=== PATIENT | male | born 1960 | race Two or more races ===

== ENCOUNTER 2024-10-11 20:01 | Emergency (ER) | payer MEDICAID, SELFPAY ==
[2024-10-11 20:03] VITALS: BMI 27.8
[2024-10-11 20:21] VITALS: BP 129/74; PULSE 85; RESP 22; TEMP 36.8; O2SAT 95
--- NOTE | 2024-10-11 20:44 | XR_ITS ---
Examination: CT brain head without contrast. 2-D sagittal coronal reconstructions Date and time of exam:October 11, 2024 2139 hours INDICATIONS: Patient fell today with injury to the head, head pain CTDI: vol (mGy):47 DLP: (mGycm):871 Technique: Multiple CT axial sections of the brain have been obtained, 5 mm slice thickness. Contrast has not been administered. 2-D sagittal, coronal reconstructions have been obtained Low dose protocols were performed. One or more of the following dose reduction techniques were used; automated exposure control, adjustment of the mA and/or KV according to patient size, use of iterative reconstruction technique. Findings: No significant ventricular enlargement. Soft tissue forehead scalp swelling Intra-axial or extra-axial hemorrhage density is not seen. No mass effect or midline shift Basal cisterns are not remarkable. Fourth ventricle is midline. Cranial vault intact. Impression: Negative for acute hemorrhage, mass effect or midline shift
--- NOTE | 2024-10-11 20:44 | XR_ITS ---
Examination: CT cervical spine without contrast 2-D sagittal reconstructions 2-D coronal reconstructions 3-D reconstructions. Exam date and time:October 11, 2024 2139 hours INDICATIONS: Patient fell today with injury to the neck, neck pain CTDI:vol (mGy) 7.9 DLP: (mGycm) 170 Technique: Multiple 2 mm axial sections of the cervical spine have been obtained. The coronal and sagittal reconstructions have been obtained. 3-D reconstructions have been obtained. Low dose protocols were performed. One or more of the following dose reduction techniques were used; automated exposure control, adjustment of the mA and/or KV according to patient size, use of iterative reconstruction technique. Findings: Axial sections demonstrate intact base of the skull. C1 exhibit satisfactory relationship to the odontoid. No acute cervical vertebral body fracture seen. Alignment posterior spinous processes satisfactory. Impression: No acute cervical fracture.
--- NOTE | 2024-10-11 20:46 | EDNOTE_ITS ---
ED Fall Injury RME/HPI General Chief Complaint: Fall Stated Complaint: FALL, LACERATION TO FOREHEAD, DIZZINESS Time Seen by Provider: 10/11/24 20:09 Arrival date/time: 10/11/24 20:01 RME / HPI RME / HPI Narrative: 64-year-old male patient came in for evaluation regarding forehead laceration. Patient was in ladder, accidentally fell, resulting into 5 cm gaping laceration forehead. Patient complained of neck pain also. Also complained of dizziness. No LOC noted patient is ambulatory denies any other injury patient is not taking any medication. Related Data Home Medications ?Medication ?Instructions ?Recorded ?Confirmed Cyclobenzaprine * (FLEXERIL *) 10 mg PO Q8HR PRN PAIN #0 tabs 02/11/16 04/07/19 Hydrocodone/Acetaminophen * (NORCO 1 tab PO Q6H PRN PA IN #0 tabs 02/11/16 04/07/19 7.5/325 *) docusate sodium 100 mg capsule 100 mg PO BID #0 caps 0 02/11/16 04/07/19 (Colace) omeprazole 40 mg capsule,delayed 40 mg PO QDAY ##0 04/07/19 release spironolactone 100 mg tablet 1 tab PO QDAY ##0 6 04/07/19 (Aldactone) gabapentin 300 mg capsule 300 mg PO TID 06/28/1704/07 glipizide 5 mg tablet 5 mg PO BID 04/07/19 9 lovastatin 20 mg tablet 20 mg PO QDAY 04/07/1904/07 metformin 1,000 mg tablet 1,000 mg PO QDAY 04/07/19 propranolol 20 mg tablet 20 mg PO BID 04/07/19 Previous Rx's ?Medication ?Instructions ?Recorded hydrocodone 10 mg-acetaminophen 1 tab PO Q6H PRN pain #30 tabs 04/10/19 325 mg tablet ([place]) hydrocodone 5 mg-acetaminophen 325 1 tab PO BID PRN pa in #10 tabs 02/06/20 mg tablet ([place]) ibuprofen 800 mg tablet 800 mg PO TID PRN pain #30 t abs 02/06/20 hydrocodone 5 mg-acetaminophen 325 1 tab PO Q8H PRN pa in #4 tabs 02/17/21 mg tablet ([place]) hydrocodone 5 mg-acetaminophen 325 1 tab PO Q8H PRN pa in #5 tabs 02/17/21 mg tablet ([place]) ibuprofen 800 mg tablet 800 mg PO Q8H PRN pain #30 t abs 10/11/24 Allergies Allergy/AdvReac Type Severity Reaction Status Date / Time No Known Allergies Allergy Verified 10/11/24 20:03 Review of Systems Review of Systems Narrative Review of Systems: Review of system reviewed and within normal limits except mentioned in HPI ED Exam Narrative Physical exam: VITAL SIGNS: Reviewed. GENERAL APPEARANCE: Alert and interactive, follows commands, no acute distress, HEAD AND FACE: +5 cm gaping laceration forehead ENT: PERRL, pink conjunctivitis, eyelid no trauma, Mucous membrane moist. NECK: Supple, posterior neck tenderness, no nuchal rigidity. CHEST: No tenderness, no crepitus, no paradoxical movement, no retractions. LUNGS: Clear, well ventilated, symmetric, no rales, no wheezing, no ronchi, no stridor, good breath sounds bilaterally. HEART: Regular rate, regular rhythm, no murmur, no gallops. ABDOMEN: Soft, positive bowel sounds, nondistended, no guarding, nontender, no rebound, no masses, RECTAL: Deferred. GENITAL: Deferred. NEUROLOGICAL: Gross motor function intact sensory function intact, Appropriate for age. MUSCULOSKELETAL: low back nontender, full range of motion. EXTREMITIES: Nontender, full range of motion. SKIN: Color pink, dry, no rash, no lacerations, no abrasions, no contusions. LYMPHATICS: Deferred. Course Quality Measures none Orders Category Date Time Status CT cervical spine wo con Stat Exams 10/11/24 20:[address] head/brain wo con Stat Exams 10/11/24 20:44 Completed Acetaminophen Tab [Tylenol ES Tab] Med 10/11/24 20:44 Discontinued 1,000 mg PO X1 ONE Lidocaine 1% 20 ml [Xylocaine 1% 20 ML] Med 10/11/24 20:44 Discontinued 10 ml INFL X1 ONE TET,DIP/PERT AC (Adult)-Tdap [Boostrix Adult (Tdap) Med 10/11/24 20:44 Discontinued Vacc] 0.5 ml IMI .ONCE ONE Vital Signs Vital signs: Vital Signs Temperature 98.3 F 10/11/24 20:21 Pulse Rate 85 10/11/24 20:21 Respiratory Rate 22 H 10/11/24 20:21 Blood Pressure 129/74 10/11/24 20:21 Pulse Oximetry (%) 95 10/11/24 20:21 Oxygen Delivery Method Room Air 10/11/24 20:21 Procedures -ED Laceration Laceration 1: Site: face Size (cm): 5 Description: linear Depth: simple, single layer Local Anesthetic: lidocaine 1% Amount of anesthesia used (mL): 5 Pre-repair: wound explored, irrigated extensively and deep structures intact Skin layer closed with: nylon Suture size (cm): 5-0 Number of sutures: 9 Technique: simple, interrupted Fall [facility] Narrative [facility] Narrative:: 64-year-old male patient came in for evaluation regarding forehead laceration. Patient was in ladder, accidentally fell, resulting into 5 cm gaping laceration forehead. Patient complained of neck pain also. Also complained of dizziness. No LOC noted patient is ambulatory denies any other injury patient is not taking any medication. CT scan of the head came back unremarkable CT of the neck came back unremarkable Patient was given Tylenol and Boostrix Repair and suturing was done by me. See procedure note Patient data External records reviewed:: None Clinical information provided by:: patient and family Social determinants that could affect healthcare access:: none Patient has the following chronic illnesses:: None How is presenting disease/condition affected by chronic disease/condition?: no chronic disease Evaluation data The following diagnostics were reviewed and interpreted by me:: radiology exam(s) Lab and/or radiology exams considered but not ordered:: None Interpretation Summary: See results [facility] Medications / Prescriptions Medications or Prescriptions considered but not ordered:: None Medication administrations:: Medication Administration History Discontinued Medications Acetaminophen (Acetaminophen 500 Mg Tablet) 1,000 mg PO X1 ONE Stop: 10/11/24 20:45 Last Admin: 10/11/24 21:14 Dose: 1,000 mg Documented By: BD Diphtheria/Tetanus/Acell Pertussis (Diphth,Pertuss(Acell),Tet Vac 0.5 Ml Syr- Adult) 0.5 ml IMi .ONCE ONE Stop: 10/11/24 20:45 Last Admin: 10/11/24 21:15 Dose: 0.5 ml Documented By: BD Lidocaine HCl (Lidocaine Hcl 1% 20 Ml Vial) 10 ml INFL X1 ONE Stop: 10/11/24 20:45 Last Admin: 10/11/24 21:15 Dose: 10 ml Documented By: BD Boostrix Tylenol Consultations Consultation(s) initiated? (list below): No Diagnosis Fall Differential Diagnosis: syncope and other (Fall, forehead laceration intracranial bleed) Most likely diagnosis given after review of the tests above:: Forehead laceration, intracranial bleed Admission Indicated Admission indicated?: not indicated Explain why admission is indicated or not indicated:: Stable Admission Request Was there a request for admission?: No Disposition Plan Disposition Plan: Discharge Discharge Attestation Discharge Attestation: The patient and all family members were given an opportunity to ask questions and understood the discharge instructions. Discharge instructions specifically effects, indications for sooner follow up or return to the emergency department, and the expected course of current diagnosis. Patient condition: Stable Discharge Plan Plan Patient Disposition: HOME (Self Care) Discharge Disposition comment: Stable Prescriptions/Referrals Prescriptions/Med Rec: New ibuprofen 800 mg tablet 800 mg PO Q8H PRN (Reason: pain) Qty: 30 0RF No Action gabapentin 300 mg capsule 300 mg PO TID Cyclobenzaprine * (FLEXERIL *) 10 MG tablet 10 mg PO Q8HR PRN (Reason: PAIN) Qty: 0 Hydrocodone/Acetaminophen * ([place] 7.5/325 *) 1 TAB tablet 1 tab PO Q6H PRN (Reason: PAIN) Qty: 0 spironolactone [Aldactone] 100 MG tablet 1 tab PO QDAY Qty: 0 omeprazole 40 MG capsule,delayed release(DR/EC) 40 mg PO QDAY Qty: 0 docusate sodium [Colace] 100 MG capsule 100 mg PO BID Qty: 0 metformin 1,000 mg Tablet 1,000 mg PO QDAY lovastatin 20 mg Tablet 20 mg PO QDAY propranolol 20 mg Tablet 20 mg PO BID glipizide 5 mg Tablet 5 mg PO BID hydrocodone-acetaminophen [[place]] 10-325 mg tablet 1 tab PO Q6H MDD 3 PRN (Reason: pain) Qty: 30 0RF ibuprofen 800 mg tablet 800 mg PO TID PRN (Reason: pain) Qty: 30 0RF hydrocodone-acetaminophen [[place]] 5-325 mg tablet 1 tab PO BID MDD 10mg PRN (Reason: pain) Qty: 10 0RF hydrocodone-acetaminophen [[place]] 5-325 mg tablet 1 tab PO Q8H MDD 3 PRN (Reason: pain) Qty: 4 0RF hydrocodone-acetaminophen [[place]] 5-325 mg tablet 1 tab PO Q8H MDD 3 PRN (Reason: pain) Qty: 5 0RF Referrals: No Primary/Family,Physician [Primary Care Provider] - In 1 week Problem List Clinical Impression: Forehead laceration, Fall Patient/Caregiver Discharge Instructions Discharge Activity: activity as tolerated Education Materials: ED Head Injury (Adult) Additional Instructions: Thank you for the opportunity for serving you today. You are stable for discharged . You are advised to: Follow-up with your PCP in 1 to 2 days Return to ED for worsening of symptoms Increase oral fluids Take medication as prescribed Daily dressing with bacitracin as needed For removal of sutures in 7 to 10 days Print Language: Kyrgyz Stand Alone Forms: Brittany Award Info., Patient Portal Info Letter PA/VASYL Supervising Physician PA/VASYL Supervising Physician: MD Cadenec
[2024-10-11 21:13] VITALS: BP 118/67; PULSE 86; RESP 20; TEMP 36.7; O2SAT 96
[2024-10-11] MEDS: ACETAMINOPHEN 500 MG TABLET 1000 MG PO (21:14)
[2024-10-11] MEDS: LIDOCAINE HCL 1% 20 ML VIAL 10 ML INFL (21:15)
[2024-10-11] MEDS: DIPHTH,PERTUSS(ACELL),TET VAC 0.5 ML SYR- ADULT IMi (21:15)
[2024-10-11 22:43] VITALS: RESP 16
== END 2024-10-11 22:47 | disposition home or self-care (01) ==
PROVIDERS: Emergency Provider Emergency Medicine
DX: S01.81XA Laceration without foreign body of other part of head, initial encounter (principal); W11.XXXA Fall on and from ladder, initial encounter; M54.2 Cervicalgia
CPT/HCPCS: 12013; 70450; 72125; 90471; 90715; 99284; J3490; A9270

== ENCOUNTER 2024-10-19 13:54 | Emergency (ER) | payer MEDICAID, SELFPAY ==
[2024-10-19 14:02] VITALS: BP 115/70; PULSE 89; RESP 20; TEMP 37.1; O2SAT 99
[2024-10-19 14:06] VITALS: BMI 24.1
--- NOTE | 2024-10-19 14:16 | PD.EDWOUND ---
ED Wound/Laceration-RME/HPI General Chief Complaint: General Adult/Misc Complain Stated Complaint: REMOVE FOREHEAD STITCHES Time Seen by Provider: 10/19/24 14:14 Source: patient Arrival date/time: 10/19/24 13:54 This is a case of 64-year-old male who came in in the emergency room for wound check reevaluation and suture removal status post laceration repair 8 days ago in the forehead patient denies any fever chills pain redness swelling or discharge Limitations: no limitations Related Data Home Medications ?Medication ?Instructions ?Recorded ?Confirmed Cyclobenzaprine * (FLEXERIL *) 10 mg PO Q8HR PRN PAIN #0 tabs 02/11/16 04/07/19 Hydrocodone/Acetaminophen * ([place] 1 tab PO Q6H PRN PAIN #0 tabs 02/11/16 04/07/19 7.5/325 *) docusate sodium 100 mg capsule 100 mg PO BID #0 caps 02/11/16 04/07/19 (Colace) omeprazole 40 mg capsule,delayed 40 mg PO QDAY ##0 02/11/16 04/07/19 release spironolactone 100 mg tablet 1 tab PO QDAY ##0 02/11/16 04/07/19 (Aldactone) gabapentin 300 mg capsule 300 mg PO TID 06/28/17 04/07/19 glipizide 5 mg tablet 5 mg PO BID 04/07/19 04/07/19 lovastatin 20 mg tablet 20 mg PO QDAY 04/07/19 04/07/19 metformin 1,000 mg tablet 1,000 mg PO QDAY 04/07/19 04/07/19 propranolol 20 mg tablet 20 mg PO BID 04/07/19 04/07/19 Previous Rx's ?Medication ?Instructions ?Recorded hydrocodone 10 mg-acetaminophen 1 tab PO Q6H PRN pain #30 tabs 04/10/19 325 mg tablet ([place]) hydrocodone 5 mg-acetaminophen 325 1 tab PO BID PRN pain #10 tabs 02/06/20 mg tablet ([place]) ibuprofen 800 mg tablet 800 mg PO TID PRN pain #30 tabs 02/06/20 hydrocodone 5 mg-acetaminophen 325 1 tab PO Q8H PRN pain #4 tabs 06/30/21 mg tablet ([place]) hydrocodone 5 mg-acetaminophen 325 1 tab PO Q8H PRN pain #5 tabs 06/30/ mg tablet ([place]) ibuprofen 800 mg tablet 800 mg PO Q8H PRN pain #30 tabs 10/11/24 mupirocin 2 % topical ointment 1 applic topical BID 10 days #15 10/19/24 ([place]) grams Allergies Allergy/AdvReac Type Severity Reaction Status Date / Time No Known Allergies Allergy Verified 10/11/24 20:03 Review of Systems Review of Systems Systems Reviewed: All systems reviewed, normal except as documented Constitutional Constitutional: Reports system reviewed and no additional complaints, except as documented Cardiovascular Cardiovascular: Reports system reviewed and no additional complaints, except as documented Respiratory Respiratory: Reports system reviewed and no additional complaints, except as documented Gastrointestinal Gastrointestinal: Reports system reviewed and no additional complaints, except as documented Musculoskeletal Musculoskeletal: Reports system reviewed and no additional complaints, except as documented Neurologic Neurologic: Reports system reviewed and no additional complaints, except as documented Past Medical History Past Medical History NEUROLOGIC: Negative Neurological Disorders or Seizures CARDIAC: Positive Cardiac Disorders, Hypercholesterolemia and Hypertension; Negative Congestive Heart Failure RESPIRATORY: Negative Chronic Obstructive Pulmonary Disease (COPD) GASTROINTESTINAL: Positive Gastrointestinal Disorders, Cirrhosis, Gall Bladder Disease and Ulcer; Negative Hepatitis GENITOURINARY: Negative Genitourinary Disorders or Renal Disease MUSCULOSKELETAL: Positive Musculoskeletal Disorders and Fractures ENDOCRINE: Positive Endocrine Disorders and Diabetes Mellitus Type 2; Negative Diabetes Mellitus Type 1 HEMATOLOGIC: Negative Blood Disorders OTHER HISTORY: Positive Blood Transfusions, Chicken Pox, Measles and Mumps; Negative Hospitalization, Autoimmune Disease, Shingles, Falls, Blood Transfusion Reaction, Anesthesia Reactions, Chemotherapy, Radiation Therapy, MRSA or Cancer Family History FAMILY HISTORY: Positive Family Cardiac Disorders, Family Cancer and Family Surgery; Negative Family Psychiatric Problems, Family Respiratory Disorders, Family Gastrointestinal Problems or Family Anesthesia Reaction Social History SMOKING STATUS: Never smoker ED Exam General Limitations: Present no limitations General appearance: Present alert and in no apparent distress Head Head exam: Present atraumatic Eye Eye exam: Present normal appearance, PERRL and EOMI ENT ENT exam: Present normal exam, normal oropharynx and mucous membranes moist Neck Neck exam: Present normal inspection, full ROM and trachea midline Chest Chest inspection: Present normal inspection and symmetric chest wall rise Respiratory Respiratory exam: Present normal lung sounds bilaterally Cardiovascular Cardiovascular exam: Present regular rate, normal rhythm and normal heart sounds Abdominal Exam Abdominal exam: Present soft and normal bowel sounds Extremities Exam Extremities exam: Present normal inspection and full ROM Back Exam Back exam: Present normal inspection and full ROM Neurological Exam Neurological exam: Present alert, oriented X3, CN II-XII intact, normal gait and reflexes normal; Absent motor sensory deficit Psychiatric Psychiatric exam: Present normal affect and normal mood Skin Skin exam: Present warm, dry, intact, normal color and other (Noted 9 suture Prolene 5.0 no redness no swelling no discharge no dehiscence no abscess no cellulitis) Course Quality Measures none Vital Signs Vital signs: Vital Signs Temperature 98.7 F 10/19/24 14:02 Pulse Rate 89 10/19/24 14:02 Respiratory Rate 20 10/19/24 14:02 Blood Pressure 115/70 10/19/24 14:02 Pulse Oximetry (%) 99 10/19/24 14:02 Oxygen Delivery Method Room Air 10/19/24 14:02 Oxygen saturation 99% in room air Wound / Laceration MDM Narrative MDM Narrative:: This is a case of 64-year-old male who came in in the emergency room for wound check reevaluation and suture removal status post laceration repair 8 days ago in the forehead patient denies any fever chills pain redness swelling or discharge physical examination patient is awake alert oriented not in distress nontoxic looking no signs and symptoms of infection no signs and symptoms of wound dehiscence no signs and symptoms of abscess no cellulitis patient suture 9 was removed completely patient tolerated well no complication noted patient was prescribed with mupirocin patient will follow-up with PCP in 2 days and for any signs and symptoms of infection he is well-informed to return in the emergency room immediate call 911 Patient was discharged with comfortable condition walking with stable gait. Patient verbalized no further complains explained diagnosis and answered patient question. Patient is comfortable with the proposed management plan including the need to follow up with his/her primary care physician and any specialist if applicable Discussed patient for any urgent condition or worsening sx, He/She needed to go to emergency room immediately or call 911. Patient acknowledge the responsibility to follow up as instructed and to monitor her/his symptoms. For any persistence of the symptoms for more than 3-5 days return precaution advised. Discussed the result of the test and was given printed discharge instruction Patient data External records reviewed:: [facility] previous records Clinical information provided by:: patient Social determinants that could affect healthcare access:: none Patient has the following chronic illnesses:: None How is presenting disease/condition affected by chronic disease/condition?: no chronic disease Evaluation data The following diagnostics were reviewed and interpreted by me:: other (specify) (None) Lab and/or radiology exams considered but not ordered:: None Interpretation Summary: None Medications / Prescriptions Medications or Prescriptions considered but not ordered:: Given Medication administrations:: Given Consultations Consultation(s) initiated? (list below): No Diagnosis Wound Differential Diagnosis: other (Wound check no infection) Most likely diagnosis given after review of the tests above:: Wound check no infection Admission Indicated Admission indicated?: not indicated Explain why admission is indicated or not indicated:: Not indicated Admission Request Was there a request for admission?: No Admission Attestation Admission request attestation: Not indicated Disposition Plan Disposition Plan: Discharge Discharge Attestation Discharge Attestation: The patient and all family members were given an opportunity to ask questions and understood the discharge instructions. Discharge instructions specifically effects, indications for sooner follow up or return to the emergency department, and the expected course of current diagnosis. Patient condition: Stable Discharge Plan Plan Patient Disposition: HOME (Self Care) Patient condition on transfer: Stable Prescriptions/Referrals Prescriptions/Med Rec: New mupirocin [[place]] 2 % ointment 1 applic topical BID 10 Days Qty: 15 0RF No Action gabapentin 300 mg capsule 300 mg PO TID Cyclobenzaprine * (FLEXERIL *) 10 MG tablet 10 mg PO Q8HR PRN (Reason: PAIN) Qty: 0 Hydrocodone/Acetaminophen * ([place] 7.5/325 *) 1 TAB tablet 1 tab PO Q6H PRN (Reason: PAIN) Qty: 0 spironolactone [Aldactone] 100 MG tablet 1 tab PO QDAY Qty: 0 omeprazole 40 MG capsule,delayed release(DR/EC) 40 mg PO QDAY Qty: 0 docusate sodium [Colace] 100 MG capsule 100 mg PO BID Qty: 0 metformin 1,000 mg Tablet 1,000 mg PO QDAY lovastatin 20 mg Tablet 20 mg PO QDAY propranolol 20 mg Tablet 20 mg PO BID glipizide 5 mg Tablet 5 mg PO BID hydrocodone-acetaminophen [[place]] 10-325 mg tablet 1 tab PO Q6H MDD 3 PRN (Reason: pain) Qty: 30 0RF ibuprofen 800 mg tablet 800 mg PO TID PRN (Reason: pain) Qty: 30 0RF hydrocodone-acetaminophen [[place]] 5-325 mg tablet 1 tab PO BID MDD 10mg PRN (Reason: pain) Qty: 10 0RF hydrocodone-acetaminophen [[place]] 5-325 mg tablet 1 tab PO Q8H MDD 3 PRN (Reason: pain) Qty: 4 0RF hydrocodone-acetaminophen [[place]] 5-325 mg tablet 1 tab PO Q8H MDD 3 PRN (Reason: pain) Qty: 5 0RF ibuprofen 800 mg tablet 800 mg PO Q8H PRN (Reason: pain) Qty: 30 0RF Problem List Clinical Impression: Visit for wound check, Visit for suture removal Patient/Caregiver Discharge Instructions Education Materials: Wound Care, ED Wound Check (Infection) Additional Instructions: Follow-up with your primary care physician in 2 days for wound check for any signs and symptoms of infection redness swelling discharge from the wound pain fever chills return to the emergency room immediately or call 911 keep the wound clean and dry and apply the medication as directed Print Language: Korean Stand Alone Forms: Brittany Award Info., Patient Portal Info Letter PA/ASSISTANT Supervising Physician PA/ASSISTANT Supervising Physician: dr ralph
== END 2024-10-19 15:25 | disposition home or self-care (01) ==
LOC: SERX 15:29
PROVIDERS: Emergency Provider Family Medicine
DX: S01.81XD Laceration without foreign body of other part of head, subsequent encounter (principal); X58.XXXD Exposure to other specified factors, subsequent encounter
CPT/HCPCS: 99282